=== PATIENT | male | born 1940 | race Caucasian/White ===

== ENCOUNTER → 2016-11-09 | Day surgery (SDC) | payer MEDICARE, OTHER ==
[~2016-11-09] MED LIST: ACETAMINOPHEN PO; ADVAIR 250-501 EAC1 INH; ADVAIR 250-501 EACH; ADVAIR 2501 DISK W/D PO; ALBUTEROL 0.5ML INH; ALBUTEROL17 GM; ALBUTEROL17 GM INH; ALEVE; ANTIVERT PO; ANUSOL-HC21 GM PR; ASPIRIN PO; BAYER CHEWABLE81 MG PO; BENAZEPRIL PO; CARVEDILOL25 MG PO; CARVEDILOL3.125 MG; CIPRO PO; COREG PO; COREG12.5 MG PO; DIFLUCAN100 MG PO; ELIQUIS5 MG PO; HCTZ PO; LOMOTIL TABLET1 TAB PO; LOTENSIN20 MG PO; MEDROL PO; NICOTINE T1 PATCH .2 TOP; NICOTINE TRANSD21 MG EXT; NITROSTAT0.4 MG SL; PRILOSEC PO; PROTONIX40 MG/BLIS PO; ROBITUSSIN-DM120 ML PO; SIMVASTATIN80 MG PO; SPIRIVA18 MCG INH; THEO-DUR300 MG PO; THEOPHYLLIN PO; ZOCOR PO
--- NOTE | ~2016-11-09 | OR ---
Unit #: [id number] #: [id number] Patient: EDMUNDO SILVA [id number] [address] [address] [id number] O MR#: [id number] NAME: EDMUNDO SILVA ROOM: Date of Procedure: 11/08/2016 Admission Date: 11/09/2016 Surgeon: John Apple M.D. : 1940 Attending Physician: John Apple M.D. Primary Care Physician: Xena Salinas Aprn OPERATIVE REPORT PRIMARY CARE PHYSICIAN Xena Salinas APRN. PREOPERATIVE DIAGNOSES The patient has presented with history of iron deficiency anemia. He gives history of melena. In addition, he also has personal history of colonic polyps removed in the past. PROCEDURES PERFORMED Upper gastrointestinal endoscopy and biopsies as well as colonoscopy with polypectomy. POSTOPERATIVE DIAGNOSES For upper endoscopy: 1. The patient had [id number] Janell esophagitis involving the mid and distal esophagus. 2. Rest of the examination up to third part of duodenum was normal. A biopsy was obtained from the distal esophagus and sent for pathology. In addition, the patient also had biopsies from the second and third part of duodenum to look for any evidence of partial villous atrophy or celiac disease. For colonoscopy: 1. Multiple polyps were seen. These were scattered throughout the entire colon. Total of 11 polyps were removed from the ascending colon, descending colon, transverse colon, hepatic and splenic flexures, and sigmoid colon. The polyps ranged in size from 5 mm to 1.2 cm. There was one polyp in the splenic flexure, one in the sigmoid colon, one in the hepatic flexure, two in the transverse colon, two in the descending colon and four in the ascending colon. All the polyps were retrieved after removal and sent for histology. 2. The patient also had small internal hemorrhoids. 3. Rest of the examination up to cecum was normal. The quality of the prep was excellent. RECOMMENDATIONS The patient is started on Diflucan for a week. In addition, be will be followed up in the office in 3 months' time. He needs a repeat colonoscopy in 3 years. SEDATION USED MAC. Unit #: [id number] #: [id number] Patient: EDMUNDO SILVA DESCRIPTION OF PROCEDURE Following detailed explanation of the potential risks and complications of an upper endoscopy and a colonoscopy, namely perforation, bleeding, and complications related to sedation, the patient was brought to GI lab and laid in the left lateral decubitus position. Lubricated tip of the Olympus video upper endoscope was passed through the bite block into the proximal esophagus under direct vision. The entire esophageal mucosa was examined and the patient was noted to have evidence of ltfs-yc-hffivlce Janell esophagitis involving the mid and distal esophagus. The scope was then advanced into the gastric cavity and the latter was insufflated. Mucosa of the fundus, body, and antrum was examined and appeared normal. Pylorus was intubated with visualization of the normal duodenal bulb and second and third part of the duodenum. Biopsies were obtained from the deep descending duodenal folds to look for any evidence of partial villous atrophy or celiac disease. Upon withdrawal and retroflexion, incisura, cardia, and greater curve was examined and no additional findings were noted. The scope was then withdrawn in the distal esophagus. Multiple biopsies were obtained from the distal esophageal mucosa and sent for histology to look for Janell hyphae. The scope was then withdrawn all the way up to pharynx. No additional findings were noted. The examination table was then turned by 180 degrees and the patient positioned for a colonoscopy. A digital rectal examination was performed, which was normal. Lubricated tip of the Olympus video colonoscope was inserted through the anus and advanced under direct vision. The scope was advanced past rectosigmoid into descending colon. No diverticula were seen in this area. The patient was noted to have multiple polyps both during antegrade examination and during withdrawal phase of the examination, and these were removed both during antegrade and withdrawal phase of examination. The scope tip was then navigated all the way up to cecum with visualization of the ileocecal valve and the appendiceal orifice. Preparation was excellent with good visualization and photodocumentation was obtained. Successive segments of the colonic mucosa were examined upon withdrawal. A total of 11 polyps were removed as mentioned under the postoperative diagnosis. These ranged in size from 5 mm to 1.2 cm. All the removed polyps were sent for histology after suction. Excellent hemostasis was achieved and photodocumentation was obtained. The patient did not have any diverticulosis; however, small internal hemorrhoids noted at the anal verge. The scope was then withdrawn and the patient returned to the recovery area. He tolerated the procedure without any postprocedure complications. Dictated by... Jeovany Kuo/matthew TD: 11/09/2016 21:31 JOB #: [id number] Unit #: [id number] #: [id number] Patient: EDMUNDO SILVA OPERATIVE REPORT X John Apple MD X PROCEDURE OPERATIVE NOTE
[2016-11-09 08:50] LABS: BASOPHIL% 0.5 % (0-2.5); EOSINOPHIL# 0.1 X10e3 (0-0.7); EOSINOPHIL% 1.4 % (0.0-7.0); HEMATOCRIT 31.3 % (38.0-50.0); HEMOGLOBIN 10.2 gm/dL (13.0-16.0); LYMPHOCYTE# 0.6 X10e3 (1.0-3.5); LYMPHOCYTE% 8.8 % (17.0-45.0); MEAN CELL VOLUME 92.2 FL (83-96); MEAN CORPUSCULAR HEMOGLOBIN 30.2 PG (28-34); MEAN CORPUSCULAR HGB CONC 32.7 g/dL (30-36); MEAN PLATELET VOLUME 7.6 FL (6.5-11.5); MONOCYTE# 0.7 X10e3 (0-1.0); MONOCYTE% 10.3 % (3.0-12.0); NEUTROPHIL# 5.1 X10e3 (1.5-7.1); PLATELET COUNT 206 X10e3 (140-420); RED BLOOD COUNT 3.39 X10e (3.90-5.60); RED CELL DISTRIBUTION WIDTH 14.5 % (11.0-15.5); WHITE BLOOD COUNT 6.4 X10e3 (4.0-10.5)
[2016-11-09 08:51] LABS: DIFF IND NO
[2016-11-09 09:35] LABS: IRON SERUM 10 ug/dL (45-182); TOTAL IRON BINDING CAPACITY 309 ug/dL (252-460); TRANSFERRIN 221 mg/dL (180-329); TRANSFERRIN SATURATION 3 % (20-50)
[2016-11-09 09:40] LABS: ALBUMIN SERUM 3.2 g/dL (3.5-5.0); ALKALINE PHOSPHATASE 65 U/L (32-92); ALT (SGPT) 9 U/L (10-40); AST (SGOT) 16 U/L (10-42); BILIRUBIN,TOTAL 0.5 mg/dL (0.2-2.0); BLOOD UREA NITROGEN 13 mg/dL (9-23); BUN/CREATININE RATIO 14.44; CALCIUM SERUM 8.6 mg/dL (8.4-10.2); CARBON DIOXIDE 28 mmol/L (22-31); CHLORIDE 100 mmol/L (100-111); CREATININE SERUM 0.9 mg/dL (0.6-1.4); GLOM FILT RATE Estimated ABOVE60 mL/min (>60); GLUCOSE FASTING 89 mg/dL (70-110); POTASSIUM 4.2 mmol/L (3.5-5.1); PROTEIN TOTAL SERUM 6.1 g/dL (6.0-8.3); SODIUM 135 mmol/L (135-145)
== END | disposition home or self-care (01) ==
LOC: COPS 05:48
PROVIDERS: Internal Medicine Gastroenterology
DX: Z12.11 Encounter for screening for malignant neoplasm of colon (principal); D12.2 Benign neoplasm of ascending colon; D12.3 Benign neoplasm of transverse colon; D12.4 Benign neoplasm of descending colon; K64.8 Other hemorrhoids; B37.81 Candidal esophagitis; I25.2 Old myocardial infarction; I25.10 Atherosclerotic heart disease of native coronary artery without angina pectoris; J44.9 Chronic obstructive pulmonary disease, unspecified; K21.9 Gastro-esophageal reflux disease without esophagitis; F17.210 Nicotine dependence, cigarettes, uncomplicated; Z79.1 Long term (current) use of non-steroidal anti-inflammatories (NSAID); Z79.899 Other long term (current) drug therapy; Z90.79 Acquired absence of other genital organ(s); Z95.0 Presence of cardiac pacemaker; Z98.890 Other specified postprocedural states
CPT/HCPCS: 80053; 82728; 83540; 83550; 85025; 88305

== ENCOUNTER → 2017-02-26 | Outpatient (CLI) | payer MEDICARE, OTHER ==
--- NOTE | ~2017-02-26 | CT57 ---
[facility] A Service of [facility] RADIOLOGY TEXT RESULTS PATIENT: EDMUNDO SILVA LOCATION: [facility] : 42 UNIT #: [id number] AGE: [address]: Bhaskar Maldonado MD SEX: M ORDER DR: [id number] [facility]. [place], [place] [address] [id number] O MR#: [id number] Acc #: [id number] NAME: EDMUNDO SILVA : 1940 SEX: M STUDY DATE/TIME: 02/26/2017 9:58 UNIT: [facility] ROOM: STUDY DESCRIPTION: CT Chest Wo Cont Attending Physician: Bhaskar Maldonado M.D. Referring Physician: Bhaskar Maldonado M.D. Ordering Physician: Bhaskar Maldonado M.D. Primary Care Physician: Xena Salinas Aprn MEDICAL IMAGING REPORT This report is preliminary unless electronic signature is present EXAM CT chest. INDICATIONS COPD. Pulmonary nodule. TECHNIQUE CT of the chest without contrast. Coronal and sagittal reconstructions were obtained. This CT exam was performed with one or more of the following radiation dose reduction techniques: automatic exposure control, adjustment of mA and/or kV according to patient size, and iterative reconstruction. COMPARISON CT chest dated 09/28/2016, 02/16/2016 and 12/10/2008. FINDINGS There is some mild parenchymal scarring in both lung apices. This is unchanged from at least 2008 and considered to be benign. There is moderate emphysema. Mild mucus plugging is noted in the right lower lobe bronchi. The irregular shaped pulmonary nodule in the left upper lobe/lingula has resolved. There is minimal ground-glass attenuation in the medial segment right middle lobe with some associated small pulmonary nodules. This is felt to be inflammatory/infectious. No pathologically enlarged mediastinal or hilar lymph nodes. No pericardial pleural effusion. 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 This is fairly similar to the prior study where it measured 4 cm. There is a small cyst in the superior pole left kidney. [facility] A Service of [facility] RADIOLOGY TEXT RESULTS PATIENT: EDMUNDO SILVA LOCATION: [facility] : 42 UNIT #: [id number] AGE: [address]: Bhaskar Maldonado MD SEX: M ORDER DR: No acute osseous abnormalities. IMPRESSION 1. Resolution of the irregular left upper lobe pulmonary nodule. 2. Development of small area of ground-glass density and nodularity in the medial segment right middle lobe. This has appearance of inflammatory/infectious process. 3. Emphysema. Dictated by... Hemanth De Los Santos M.D. THIS IS AN ELECTRONICALLY VERIFIED REPORT Hemanth De Los Santos M.D. at 02/26/2017 4:48 PM CLAUDIA/leonel TD: 02/26/2017 16:08 JOB #: [id number] MEDICAL IMAGING REPORT Page 1 of 1 COPY
== END | disposition home or self-care (01) ==
LOC: CCAT 09:05
DX: J44.9 Chronic obstructive pulmonary disease, unspecified (principal); J98.4 Other disorders of lung; R91.1 Solitary pulmonary nodule
CPT/HCPCS: 71250